=== PATIENT | female | born 1965 | race Caucasian/White ===

== ENCOUNTER 2018-10-21 10:13 | Observation (INO) | payer OTHER ==
[2018-10-21] MEDS: IPRATROPIUM-ALBUTEROL 3 ML NEB INHALATION SCH ×3 (12:57→21:05)
[2018-10-21 13:42] LABS: Basophils % (A) 1 %; Eosinophils # (A) 0.2 k/uL (0-0.7); Eosinophils % (A) 2 %; HCT 45.4 % (34.0-46.0); HGB 15.2 gm/dL (11.4-16.0); Lymphocytes # (A) 2.4 k/uL (1.0-4.8); Lymphocytes % (A) 31 %; MCH 29.5 pg (25.0-35.0); MCHC 33.5 g/dL (31.0-37.0); Mean Platelet Volume 7.2; Monocytes # (A) 0.4 k/uL (0-1.0); Monocytes % (A) 5 %; Neutrophils # (A) 4.6 k/uL (1.3-7.7); Neutrophils % (A) 59 %; Platelet Count 254 k/uL (150-450); RBC 5.16 m/uL (3.80-5.40); RDW 12.8 % (11.5-15.5); WBC 7.7 k/uL (3.8-10.6)
[2018-10-21 13:50] LABS: ALT 54 U/L (9-52); AST 31 U/L (14-36); Albumin 4.1 g/dL (3.5-5.0); Alkaline Phosphatase 83 U/L (38-126); Anion Gap 6 mmol/L; Blood Urea Nitrogen 6 mg/dL (7-17); Calcium 8.9 mg/dL (8.4-10.2); Carbon Dioxide 25 mmol/L (22-30); Chloride 107 mmol/L (98-107); Glucose 150 mg/dL (74-99); Potassium 4.4 mmol/L (3.5-5.1); Sodium 138 mmol/L (137-145); Total Bilirubin 0.8 mg/dL (0.2-1.3); Total Protein 6.8 g/dL (6.3-8.2)
[2018-10-21] MEDS: IBUPROFEN 200 MG TAB PO SCH ×2 (14:00→18:12)
--- NOTE | 2018-10-21 14:11 | XR ---
EXAMINATION TYPE: XR chest 2V DATE OF EXAM: 10/21/2018 COMPARISON: NONE HISTORY: Dyspnea and cough. TECHNIQUE: Frontal and lateral views of the chest are obtained. FINDINGS: There is no focal air space opacity, pleural effusion, or pneumothorax seen. The cardiac silhouette size is within normal limits. The osseous structures are intact. IMPRESSION: No acute cardiopulmonary process.
--- NOTE | 2018-10-21 14:13 | XR ---
EXAMINATION TYPE: XR abdomen 2V DATE OF EXAM: 10/21/2018 CLINICAL HISTORY: Vomiting. TECHNIQUE: Supine and upright views of the abdomen are obtained. COMPARISON: CT abdomen and pelvis from 2017. FINDINGS: Scattered gas is seen in non-distended stomach and small bowel loops. Gas and fecal mater ial is seen in non-distended colon. There is no visceromegaly, pneumoperitoneum, or abnormal calcif ication appreciated. The lung bases are clear and the osseous structures are intact. Left-sided pelv ic phlebolith is redemonstrated. IMPRESSION: Overall nonobstructive bowel gas pattern.
[2018-10-21] MEDS: SODIUM CHLORIDE 0.9% 1,000 ML IV SCH (14:36)
[2018-10-21] MEDS: methylPREDNISolone SOD SUCCI 125 MG/2 ML VIAL IV SCH (16:19)
[2018-10-21 17:28] LABS: Glucose,Whole Blood 197 mg/dL (75-99)
[2018-10-21] MEDS: INSULIN ASPART (NovoLOG) 100 UNIT/ML VIAL SQ SCH ×2 (18:12→21:19)
[2018-10-21 20:46] LABS: Glucose,Whole Blood 307 mg/dL (75-99)
[2018-10-21] MEDS ORDERED: NEOMYCIN-POLYMYXIN-DEXAMETH OINT 3.5 GM TUBE BOTH EYES SCH (21:00)
[2018-10-21] MEDS ORDERED: NON-FORMULARY DRUG (D-Methorphan/Pe/Acetaminophen [Vicks Dayquil Liquicaps] 1 CAP) PO SCH (21:00)
[2018-10-21] MEDS: OSELTAMIVIR 75 MG CAP PO SCH (21:18)
[2018-10-21] MEDS: guaiFENesin 600 MG TABLET.ER PO SCH (21:18)
[2018-10-21] MEDS: metFORMIN 500 MG TAB PO SCH (21:19)
[2018-10-21] MEDS: KETOTIFEN 0.025% OPHTH DROPS 5 ML BTL BOTH EYES SCH (21:19)
[2018-10-22] MEDS: methylPREDNISolone SOD SUCCI 125 MG/2 ML VIAL IV SCH ×3 (02:04→16:36)
[2018-10-22] MEDS: SODIUM CHLORIDE 0.9% 1,000 ML IV SCH (02:08)
[2018-10-22] MEDS: INSULIN ASPART (NovoLOG) 100 UNIT/ML VIAL SQ SCH ×2 (07:09→12:27)
[2018-10-22 07:13] LABS: Glucose,Whole Blood 259 mg/dL (75-99)
[2018-10-22] MEDS: IPRATROPIUM-ALBUTEROL 3 ML NEB INHALATION SCH ×3 (08:02→16:36)
[2018-10-22] MEDS: IBUPROFEN 200 MG TAB PO SCH ×2 (08:54→14:23)
[2018-10-22] MEDS ORDERED: ATORVASTATIN 10 MG TAB PO SCH (09:00)
[2018-10-22] MEDS: guaiFENesin 600 MG TABLET.ER PO SCH (09:03)
[2018-10-22] MEDS: KETOTIFEN 0.025% OPHTH DROPS 5 ML BTL BOTH EYES SCH (09:04)
[2018-10-22] MEDS: metFORMIN 500 MG TAB PO SCH (09:05)
[2018-10-22] MEDS: OSELTAMIVIR 75 MG CAP PO SCH (09:05)
--- NOTE | 2018-10-22 09:15 | HP ---
HISTORY AND PHYSICAL CHIEF COMPLAINT: A 52-year-old white female was admitted with severe dehydration, myalgias, flu-like symptoms, shortness of breath. She had positive H flu type B started on Tamiflu, IV Solu-Medrol for COPD exacerbation and prophylactic antibiotics for tracheobronchitis type symptoms. Accu-Chek protocol was given for diabetes mellitus. HOME MEDICATIONS: Home medications are: 1. Metformin 500 b.i.d. 2. Lipitor 10 mg daily. REVIEW OF SYSTEMS: Fourteen-point review of systems negative except for mentioned in HPI. PHYSICAL EXAM: Vital signs are reviewed. CARDIOVASCULAR: S1, S2. LUNGS: Show scattered wheeze x4, scattered rhonchi x4. No rales. CONSTITUTIONAL: Looks weak, fatigued, short of breath. States she cannot take it anymore. She does not want . INTEGUMENT: Dry skin, turgor poor skin. Dry mucous membranes. Poor skin turgor. OPHTHALMOLOGIC: Pupils equal, round, reactive to light. HEMATOLOGY: Negative Homans. VASCULAR: Normal dorsalis pedis, posterior tibial, radial pulses. ABDOMEN: Soft, nontender. Distended due to obesity. Increased bowel sounds. ASSESSMENT: 1. H flu type B, dehydration. 2. Chronic obstructive pulmonary disease exacerbation. 3. Acute hypoxemic respiratory failure secondary to influenza, possible pneumonia. Secondary pneumonia will have to be ruled out. IV Solu-Medrol, IV antibiotics, Tamiflu, fluid rehydration. Please see further orders. MMODL / IJN: [id number] /
[2018-10-22 12:24] LABS: Glucose,Whole Blood 237 mg/dL (75-99)
[2018-10-22 12:50] VITALS: BP 143/70; TEMP 98.2
[2018-10-22 13:50] VITALS: BMI 32.3
[2018-10-22 16:50] VITALS: PULSE 94; RESP 16
--- NOTE | 2018-10-22 16:58 | P.DS ---
Providers Date of admission: 10/21/18 11:02 Expected date of discharge: 10/22/18 Attending physician: Myron Vazquez [facility] Course: -H influenza type B, dehydration -Acute hypoxic respiratory failure secondary to influenza, possibly pneumonia -COPD, possibly acute exacerbation secondary to influenza -Ongoing nicotine dependence, smoking cessation readdressed Hospital course: This is a 52-year-old female admitted with severe dehydration, myalgias, shortness of breath, tested positive for influenza B. Maintained on gentle IV fluid hydration, IV steroids, antibiotics, Tamiflu. Significant clinical improvement. Patient is eager and requests to go home tonight versus waiting for tomorrow morning. Patient is being discharged home in a stable condition with guarded prognosis. EXAM: GENERAL: Alert and oriented 3, no acute distress. CARDIOVASCULAR: S1, S2 muffled. No murmur RESPIRATION: Breath sounds diminished in the bases. Improved mild expiratory wheezing, No rhonchi or crackles. No bronchial breathing. ABDOMEN: Soft, nontender . No guarding. no masses palpable.Bowel sounds heard. NERVOUS SYSTEM: No focal deficits. The impression and plan of care has been dictated as directed. .: I performed a history and examination of this patient, discussed the same with the dictator. I agree with the dictator's note ,documented as a scribe. Any additional findings or plans will be noted. Time taken: 35 minutes Patient Condition at Discharge: Stable Plan - Discharge Summary New Discharge Prescriptions: New Cefuroxime Axetil [Ceftin] 500 mg PO BID #10 tab predniSONE 10 mg PO DIRECTED #30 tab Pantoprazole Sodium [Protonix] 40 mg PO DAILY #15 tablet. Oseltamivir [Tamiflu] 75 mg PO Q12HR #10 cap Continue Azelastine HCl [Optivar 0.05% Ophth Soln] 1 drop BOTH EYES BID guaiFENesin [Mucinex] 600 mg PO Q12HR Ibuprofen [Motrin Ib] 200 mg PO Q8H metFORMIN HCL [Glucophage] 500 mg PO BID Atorvastatin [Lipitor] 10 mg PO DAILY Yehdnoua-Kitxkyajq-Iowqmqls [Maxitrol Ophth Oint] 1 applic BOTH EYES HS Discharge Medication List Atorvastatin [Lipitor] 10 mg PO DAILY 10/21/18 [History] Azelastine HCl [Optivar 0.05% Ophth Soln] 1 drop BOTH EYES BID 10/21/18 [History] Ibuprofen [Motrin Ib] 200 mg PO Q8H 10/21/18 [History] Xpqyuofe-Qxpweqltl-Iynaante [Maxitrol Ophth Oint] 1 applic BOTH EYES HS 10/21/18 [History] guaiFENesin [Mucinex] 600 mg PO Q12HR 10/21/18 [History] metFORMIN HCL [Glucophage] 500 mg PO BID 10/21/18 [History] Cefuroxime Axetil [Ceftin] 500 mg PO BID #10 tab 10/22/18 [Rx] Oseltamivir [Tamiflu] 75 mg PO Q12HR #10 cap 10/22/18 [Rx] Pantoprazole Sodium [Protonix] 40 mg PO DAILY #15 tablet. 10/22/18 [Rx] predniSONE 10 mg PO DIRECTED #30 tab 10/22/18 [Rx] Follow up Appointment(s)/Referral(s): Myron Vazquez MD [Primary Care Provider] - 3 Days Ambulatory/Diagnostic Orders: Complete Blood Count w/diff [LAB.AMB] Time Frame: 3 Days, Location: None Selected Activity/Diet/Wound Care/Special Instructions: Accu-Cheks before meals and at bedtime, maintain log, take to follow-up visit with PCP for further recommendations. HGBA1C ordered with results to be faxed to PCPs office.
[2018-10-23 00:27] LABS: Hemoglobin A1C 8.3 % (4.0-6.0)
== END 2018-10-22 17:15 | disposition home or self-care (01) ==
LOC: 6PED 11:02
PROVIDERS: ADMIT Family Medicine; ATTEND Family Medicine
DX: J09.X2 Influenza due to identified novel influenza A virus with other respiratory manifestations (principal); E86.0 Dehydration; J96.01 Acute respiratory failure with hypoxia; F17.200 Nicotine dependence, unspecified, uncomplicated; Z71.6 Tobacco abuse counseling; J44.1 Chronic obstructive pulmonary disease with (acute) exacerbation; Z79.899 Other long term (current) drug therapy
CPT/HCPCS: 96361 ×2; 96365; 96366; 96375; 96376; 94640 ×4; 93005; 85379; 83880; 80053; 83605; 85025; 87502; 83036; 71046; 74019; G0378 ×2; G0379; J2930 ×2; J0696 ×2

== ENCOUNTER → 2019-03-25 | Outpatient (CLI) | payer OTHER ==
[2019-03-25 11:19] LABS: African American GFR (CKD) 115.5 (60.0-200.0); Anion Gap 7.3 mmol/L (4.00-12.00); Carbon Dioxide 28.7 mmol/L (21.6-31.8); LDL Cholesterol,Calculated 90.6 mg/dL (0.0-131.0); Potassium 4.4 mmol/L (3.5-5.5); VLDL Calculation 29.4 mg/dL (5.00-40.00)
[2019-03-25 16:27] LABS: Hemoglobin A1C 9.7 % (4.0-6.0)
== END | disposition home or self-care (01) ==
LOC: LABWHC1 06:59
PROVIDERS: ATTEND Family Medicine
DX: Z00.00 Encounter for general adult medical examination without abnormal findings (principal); Z79.899 Other long term (current) drug therapy
CPT/HCPCS: 36415; 80051; 80061; 82533; 82565; 83036; 84443; 84520

== ENCOUNTER 2019-09-05 14:36 | Inpatient (IN) | payer OTHER ==
[2019-09-05] MEDS: SODIUM CHLORIDE 0.9% 1,000 ML IV SCH (16:33)
[2019-09-05] MEDS: methylPREDNISolone SOD SUCCI 125 MG/2 ML VIAL IV SCH (16:34)
[2019-09-05 16:38] LABS: Glucose,Whole Blood 182 mg/dL (75-99)
[2019-09-05] MEDS ORDERED: guaiFENesin 600 MG TABLET.ER PO PRN (16:58)
[2019-09-05] MEDS ORDERED: KETOTIFEN 0.025% OPHTH DROPS 5 ML BTL BOTH EYES PRN (16:58)
[2019-09-05] MEDS ORDERED: NEOMYCIN-POLYMYXIN-DEXAMETH OINT 3.5 GM TUBE BOTH EYES PRN (16:58)
[2019-09-05] MEDS: INSULIN ASPART (NovoLOG) 100 UNIT/ML VIAL SQ SCH ×2 (17:55→22:01)
[2019-09-05 18:38] LABS: Basophils % (A) 1 %; Eosinophils % (A) 1 %; HCT 45.4 % (34.0-46.0); Lymphocytes # (A) 1.2 k/uL (1.0-4.8); Lymphocytes % (A) 28 %; MCH 28.9 pg (25.0-35.0); MCV 87.5 fL (80.0-100.0); Mean Platelet Volume 8.6; Monocytes # (A) 0.2 k/uL (0-1.0); Monocytes % (A) 5 %; Neutrophils # (A) 2.8 k/uL (1.3-7.7); Neutrophils % (A) 64 %; Platelet Count 188 k/uL (150-450); RBC 5.19 m/uL (3.80-5.40); RDW 12.3 % (11.5-15.5); WBC 4.4 k/uL (3.8-10.6)
[2019-09-05 18:51] LABS: ALT 45 U/L (4-34); AST 31 U/L (14-36); African American GFR (CKD) >90 (>60 ml/min/1.73 sqM); Albumin 3.6 g/dL (3.5-5.0); Alkaline Phosphatase 76 U/L (38-126); Anion Gap 6 mmol/L; Blood Urea Nitrogen 12 mg/dL (7-17); Calcium 8.4 mg/dL (8.4-10.2); Carbon Dioxide 29 mmol/L (22-30); Chloride 98 mmol/L (98-107); Glucose 209 mg/dL (74-99); Non-African American GFR(CKD) >90 (>60 ml/min/1.73 sqM); Sodium 133 mmol/L (137-145); Total Bilirubin 0.8 mg/dL (0.2-1.3); Total Protein 6.2 g/dL (6.3-8.2)
--- NOTE | 2019-09-05 20:06 | XR ---
EXAMINATION TYPE: XR chest 2V DATE OF EXAM: 09/05/2019 COMPARISON: 10/21/2018 HISTORY: Cough. Chest pain. TECHNIQUE: FINDINGS: Heart and mediastinum are normal. Lungs are clear. Diaphragm is normal. Bony thorax is inta ct. Pulmonary vascularity is normal. IMPRESSION: No active cardiopulmonary disease. Normal heart. No change.
[2019-09-05 20:19] LABS: Glucose,Whole Blood 350 mg/dL (75-99)
[2019-09-06] MEDS: SODIUM CHLORIDE 0.9% 1,000 ML IV SCH ×4 (00:21→23:07)
[2019-09-06] MEDS: methylPREDNISolone SOD SUCCI 125 MG/2 ML VIAL IV SCH ×4 (00:41→23:05)
[2019-09-06 01:20] LABS: Hemoglobin A1C 9.3 % (4.0-6.0)
[2019-09-06 01:57] LABS: Appearance,Urine Turbid (Clear); Bacteria,Urine Many /hpf; Bilirubin,Urine Negative (Negative); Blood,Urine Negative (Negative); Color,Urine Light Orange; Glucose,Urine (UA) 4+ (Negative); Ketones,Urine Trace (Negative); Leukocyte Esterase,Urine Moderate (Negative); Mucus,Urine Many /hpf; Nitrite,Urine Negative (Negative); PH, Urine 5.5 (5.0-8.0); Protein,Urine Trace (Negative); RBC,Urine 2 /hpf (0-5); Specific Gravity,Urine 1.027 (1.001-1.035); WBC,Urine 12 /hpf (0-5)
[2019-09-06 06:42] LABS: Glucose,Whole Blood 292 mg/dL (75-99)
[2019-09-06 07:09] LABS: Basophils % (A) 0 %; Eosinophils % (A) 0 %; HCT 44.2 % (34.0-46.0); HGB 14.5 gm/dL (11.4-16.0); Lymphocytes # (A) 1.1 k/uL (1.0-4.8); Lymphocytes % (A) 35 %; MCH 29.2 pg (25.0-35.0); MCHC 32.9 g/dL (31.0-37.0); MCV 88.6 fL (80.0-100.0); Mean Platelet Volume 7.6; Monocytes # (A) 0.1 k/uL (0-1.0); Monocytes % (A) 4 %; Neutrophils # (A) 1.7 k/uL (1.3-7.7); Neutrophils % (A) 56 %; Platelet Count 195 k/uL (150-450); RBC 4.98 m/uL (3.80-5.40); RDW 12.3 % (11.5-15.5)
[2019-09-06 07:31] LABS: ALT 41 U/L (4-34); AST 30 U/L (14-36); African American GFR (CKD) >90 (>60 ml/min/1.73 sqM); Albumin 3.4 g/dL (3.5-5.0); Alkaline Phosphatase 70 U/L (38-126); Anion Gap 9 mmol/L; Blood Urea Nitrogen 11 mg/dL (7-17); Calcium 8.3 mg/dL (8.4-10.2); Carbon Dioxide 25 mmol/L (22-30); Chloride 103 mmol/L (98-107); Glucose 304 mg/dL (74-99); Non-African American GFR(CKD) >90 (>60 ml/min/1.73 sqM); Potassium 4.2 mmol/L (3.5-5.1); Sodium 137 mmol/L (137-145); Total Bilirubin 0.6 mg/dL (0.2-1.3); Total Protein 6.1 g/dL (6.3-8.2)
[2019-09-06 07:58] VITALS: RESP 18
[2019-09-06] MEDS: INSULIN ASPART (NovoLOG) 100 UNIT/ML VIAL SQ SCH ×4 (08:14→20:38)
[2019-09-06] MEDS: LORATADINE 10 MG TAB PO SCH (08:59)
[2019-09-06] MEDS: ATORVASTATIN 10 MG TAB PO SCH (08:59)
[2019-09-06 11:35] VITALS: BMI 33.7
[2019-09-06 11:36] LABS: Glucose,Whole Blood 277 mg/dL (75-99)
--- NOTE | 2019-09-06 14:39 | HP ---
HISTORY AND PHYSICAL A 53-year-old, white female admitted with COPD, asthma exacerbation, tracheobronchitis, saturating in the high 80s on room air. She is currently saturating 90% to 91% on room air. She remains on Solu-Medrol as well as Rocephin as well as her Lipitor and nebulizer treatments with DuoNeb. Her respiratory status is not much better than when she was admitted but she says she does not feel like she is going to like she did yesterday. As mentioned, she is saturating 90% to 91% on room air. Home medications have been restarted. SOCIAL HISTORY: She lives with her . She does smoke over a pack a day. No alcohol. REVIEW OF SYSTEMS: Positive for having the flu a month ago and been sick ever since with increased respiratory distress in the past week coming back from [place]. PHYSICAL EXAMINATION: LUNGS: Scattered rhonchi and wheeze x4. Decreased breath sounds x4. ENDOCRINE: BMI is over 40. PSYCHIATRIC: She appears anxious and nervous because of her breathing. CARDIOVASCULAR: S1, S2. HEMATOLOGIC: 2+ to 3+ pedal edema. VASCULAR: Normal dorsal pedis, posterior tibial and radial pulses. Pupils equal, round, and reactive to light and accommodation. ASSESSMENT: 1. Chronic obstructive pulmonary disease. 2. Asthma exacerbation. 3. Tracheobronchitis. Remains on IV steroids, IV antibiotics, updraft treatments with DuoNeb. Continue with current treatment. She feels better than yesterday. We will add a nebulizer with DuoNeb. Possible discharge home tomorrow as her breathing is about 30% to 50% better even though she is saturating 90% to 91% on room air. MMODL / IJN: [id number] /
[2019-09-06] MEDS: IPRATROPIUM-ALBUTEROL 3 ML NEB INHALATION SCH ×2 (16:36→21:29)
[2019-09-06 16:38] LABS: Glucose,Whole Blood 302 mg/dL (75-99)
[2019-09-06] MEDS ORDERED: RX INFO: IV CONTRAST WAS GIVEN 1 EACH MISC MISCELLANE PRN (17:08)
--- NOTE | 2019-09-06 20:05 | CT ---
EXAMINATION TYPE: CT chest w con DATE OF EXAM: 09/06/2019 COMPARISON: None HISTORY: Hypoxia CT DLP: 604.4 mGycm Automated exposure control for dose reduction was used. CONTRAST: Performed with IV Contrast, patient injected with 100 mL of Isovue 300. There are small patchy areas of subpleural interstitial and alveolar pulmonary infiltrates bilaterall y. There is no discrete pulmonary mass. Heart size is normal. There is no pericardial effusion. There is some fatty infiltration of the liver. There is no pleural effusion. There are no hilar masses. Mediastinum appears normal. Thoracic aorta is intact. There is no aneurysm or dissection. Bony thorax is intact. IMPRESSION: There is bilateral peripheral small pulmonary interstitial and alveolar infiltrates more likely relat ed to inflammatory disease. No suspicious pulmonary mass. Mild subsegmental atelectasis at the lung b ases. Fatty liver.
[2019-09-06 20:09] LABS: Glucose,Whole Blood 307 mg/dL (75-99)
[2019-09-07 06:12] LABS: Glucose,Whole Blood 287 mg/dL (75-99)
[2019-09-07] MEDS: INSULIN ASPART (NovoLOG) 100 UNIT/ML VIAL SQ SCH ×2 (08:09→11:50)
[2019-09-07] MEDS: ATORVASTATIN 10 MG TAB PO SCH (08:10)
[2019-09-07] MEDS: methylPREDNISolone SOD SUCCI 125 MG/2 ML VIAL IV SCH (08:10)
[2019-09-07] MEDS: LORATADINE 10 MG TAB PO SCH (08:10)
[2019-09-07] MEDS: IPRATROPIUM-ALBUTEROL 3 ML NEB INHALATION SCH ×2 (09:15→13:21)
[2019-09-07 11:46] LABS: Glucose,Whole Blood 333 mg/dL (75-99)
[2019-09-07 13:22] VITALS: BP 135/81; TEMP 98.1
[2019-09-07 13:36] VITALS: PULSE 84
--- NOTE | 2019-09-07 14:33 | P.DS ---
Providers Date of admission: 09/07/19 13:13 Expected date of discharge: 09/07/19 Attending physician: Myron Vazquez [facility] Course: Final Diagnoses: Bilateral pneumonia as suggested per CT, with tracheobronchitis Acute asthma exacerbation COPD exacerbation, acute Hospital course: Maintained on IV antibiotics, IV steroids, nebulized bronchodilators. Significant clinical improvement. Patient eager for discharge.Patient is being discharged home in stable condition with guarded prognosis. Patient instructed to follow with Dr. Myron Vazquez on 09/09/2019. EXAM: GENERAL: Alert and oriented 3, no acute distress CARDIOVASCULAR: S1, S2 regular.. No murmur RESPIRATION: Breath sounds diminished in the bases. Occasional scattered rhonchi, no expiratory wheezing. ABDOMEN: Soft, nontender . No guarding. no masses palpable.Bowel sounds heard. NERVOUS SYSTEM: No focal deficits. The impression and plan of care has been dictated as directed. : I performed a history and examination of this patient, discussed the same with the dictator. I agree with the dictator's note ,documented as a scribe. Any additional findings or plans will be noted. Patient Condition at Discharge: Stable Plan - Discharge Summary Discharge Rx Participant: Yes New Discharge Prescriptions: New Cefuroxime Axetil [Ceftin] 500 mg PO BID 7 Days #14 tab methylPREDNISolone [Medrol Dose Pack] 4 mg PO DIRECTED #1 pack Famotidine [Pepcid] 20 mg PO BID #1 tablet Albuterol Inhaler [Ventolin Hfa Inhaler] 2 puff INHALATION QID #1 inhaler Continue guaiFENesin [Mucinex] 600 mg PO Q12HR PRN PRN Reason: Congestion Atorvastatin [Lipitor] 10 mg PO DAILY Pnpfpktl-Qnuxigjno-Svqlgdfi [Maxitrol Ophth Oint] 1 applic BOTH EYES BID PRN PRN Reason: Allergy Symptoms metFORMIN HCL [Glucophage] 1,000 mg PO DAILY Loratadine [Claritin] 10 mg PO DAILY Olopatadine HCl [Pataday] 1 drop BOTH EYES BID PRN PRN Reason: Allergy Symptoms Discontinued Ibuprofen [Motrin Ib] 400 mg PO Q6H PRN PRN Reason: Fever And/ Or Pain Discharge Medication List Atorvastatin [Lipitor] 10 mg PO DAILY 10/21/18 [History] Nclmbmcq-Wobugflyn-Pwetbuvn [Maxitrol Ophth Oint] 1 applic BOTH EYES BID PRN 10/21/18 [History] guaiFENesin [Mucinex] 600 mg PO Q12HR PRN 10/21/18 [History] Loratadine [Claritin] 10 mg PO DAILY 09/05/19 [History] Olopatadine HCl [Pataday] 1 drop BOTH EYES BID PRN 09/05/19 [History] metFORMIN HCL [Glucophage] 1,000 mg PO DAILY 09/05/19 [History] Albuterol Inhaler [Ventolin Hfa Inhaler] 2 puff INHALATION QID #1 inhaler 09/07/19 [Rx] Cefuroxime Axetil [Ceftin] 500 mg PO BID 7 Days #14 tab 09/07/19 [Rx] Famotidine [Pepcid] 20 mg PO BID #1 tablet 09/07/19 [Rx] methylPREDNISolone [Medrol Dose Pack] 4 mg PO DIRECTED #1 pack 09/07/19 [Rx] Follow up Appointment(s)/Referral(s): Myron Vazquez MD [Primary Care Provider] - 09/09/19 Ambulatory/Diagnostic Orders: Complete Blood Count w/diff [LAB.AMB] Time Frame: 3 Days, Location: None Selected Patient Instructions/Handouts: Dehydration (GEN)
== END 2019-09-07 15:43 | disposition home or self-care (01) | DRG 190 ==
LOC: 1SOBS 15:13 → OBSVTOIN 09-07 13:13
PROVIDERS: ADMIT Family Medicine; ATTEND Family Medicine
DX: J44.1 Chronic obstructive pulmonary disease with (acute) exacerbation (principal); J18.9 Pneumonia, unspecified organism; J45.901 Unspecified asthma with (acute) exacerbation; J44.0 Chronic obstructive pulmonary disease with (acute) lower respiratory infection; F17.210 Nicotine dependence, cigarettes, uncomplicated
CPT/HCPCS: 71046; 71260; 80053; 81001; 83036; 83605; 85025; 85379; 87040; 87077; 87086; 87186; 87502; 94640

== ENCOUNTER 2019-09-09 09:35 | Inpatient (IN) | payer OTHER ==
[2019-09-09] MEDS ORDERED: guaiFENesin 600 MG TABLET.ER PO PRN (11:01)
[2019-09-09] MEDS ORDERED: KETOTIFEN 0.025% OPHTH DROPS 5 ML BTL BOTH EYES PRN (11:01)
[2019-09-09] MEDS ORDERED: NEOMYCIN-POLYMYXIN-DEXAMETH OINT 3.5 GM TUBE BOTH EYES PRN (11:01)
[2019-09-09] MEDS ORDERED: IPRATROPIUM-ALBUTEROL 3 ML NEB INHALATION PRN (11:05)
[2019-09-09] MEDS ORDERED: PANTOPRAZOLE 40 MG/10 ML VIAL IVP SCH (11:15)
[2019-09-09 11:31] LABS: Basophils % (A) 0 %; Eosinophils # (A) 0.1 k/uL (0-0.7); Eosinophils % (A) 1 %; HGB 14.2 gm/dL (11.4-16.0); Lymphocytes # (A) 2.6 k/uL (1.0-4.8); Lymphocytes % (A) 29 %; MCH 29.1 pg (25.0-35.0); MCHC 33.1 g/dL (31.0-37.0); MCV 87.8 fL (80.0-100.0); Mean Platelet Volume 8.3; Monocytes # (A) 0.6 k/uL (0-1.0); Monocytes % (A) 6 %; Neutrophils # (A) 5.4 k/uL (1.3-7.7); Neutrophils % (A) 62 %; Platelet Count 283 k/uL (150-450); RBC 4.89 m/uL (3.80-5.40); RDW 12.3 % (11.5-15.5); WBC 8.8 k/uL (3.8-10.6)
[2019-09-09] MEDS: IPRATROPIUM-ALBUTEROL 3 ML NEB INHALATION SCH ×3 (12:10→19:03)
[2019-09-09 12:13] LABS: Glucose,Whole Blood 183 mg/dL (75-99)
[2019-09-09 12:30] LABS: ALT 111 U/L (4-34); AST 50 U/L (14-36); African American GFR (CKD) >90 (>60 ml/min/1.73 sqM); Albumin 3.6 g/dL (3.5-5.0); Alkaline Phosphatase 75 U/L (38-126); Anion Gap 8 mmol/L; Blood Urea Nitrogen 12 mg/dL (7-17); Calcium 8.7 mg/dL (8.4-10.2); Carbon Dioxide 28 mmol/L (22-30); Chloride 99 mmol/L (98-107); Glucose 190 mg/dL (74-99); Magnesium 1.8 mg/dL (1.6-2.3); Non-African American GFR(CKD) >90 (>60 ml/min/1.73 sqM); Potassium 4.3 mmol/L (3.5-5.1); Sodium 135 mmol/L (137-145); Total Bilirubin 0.5 mg/dL (0.2-1.3); Total Protein 6.2 g/dL (6.3-8.2)
[2019-09-09] MEDS: metFORMIN 500 MG TAB PO SCH (12:40)
[2019-09-09] MEDS: NICOTINE 14MG/24HR PATCH TRANSDERM SCH (12:40)
[2019-09-09] MEDS: LORATADINE 10 MG TAB PO SCH (12:40)
[2019-09-09] MEDS: LEVOFLOXACIN 500MG-D5W PMX 500 MG in DEXTROSE/WATER 1 100ML.BAG IVPB SCH (12:45)
[2019-09-09] MEDS: INSULIN ASPART (NovoLOG) 100 UNIT/ML VIAL SQ SCH ×3 (12:45→21:53)
[2019-09-09] MEDS: methylPREDNISolone SOD SUCCI 125 MG/2 ML VIAL IV SCH ×3 (12:45→23:39)
[2019-09-09] MEDS: SODIUM CHLORIDE 0.9% 1,000 ML IV SCH (16:44)
[2019-09-09 17:09] LABS: Glucose,Whole Blood 299 mg/dL (75-99)
[2019-09-09] MEDS ORDERED: INSULIN ASPART (NovoLOG) 100 UNIT/ML VIAL SQ ONE (17:54)
[2019-09-09 21:20] LABS: Glucose,Whole Blood 328 mg/dL (75-99)
[2019-09-10] MEDS: methylPREDNISolone SOD SUCCI 125 MG/2 ML VIAL IV SCH ×4 (05:35→23:26)
[2019-09-10] MEDS: SODIUM CHLORIDE 0.9% 1,000 ML IV SCH ×2 (05:35→20:17)
[2019-09-10 07:12] LABS: Glucose,Whole Blood 280 mg/dL (75-99)
[2019-09-10] MEDS: ATORVASTATIN 10 MG TAB PO SCH (07:26)
[2019-09-10] MEDS: metFORMIN 500 MG TAB PO SCH (07:26)
[2019-09-10] MEDS: INSULIN ASPART (NovoLOG) 100 UNIT/ML VIAL SQ SCH ×4 (07:26→21:14)
[2019-09-10] MEDS: NICOTINE 14MG/24HR PATCH TRANSDERM SCH (07:26)
[2019-09-10] MEDS: PANTOPRAZOLE 40 MG TABLET PO SCH (07:26)
[2019-09-10] MEDS: LORATADINE 10 MG TAB PO SCH (07:26)
[2019-09-10 08:14] LABS: Basophils % (A) 0 %; Eosinophils # (A) 0.1 k/uL (0-0.7); Eosinophils % (A) 0 %; HCT 43.1 % (34.0-46.0); HGB 14.6 gm/dL (11.4-16.0); Lymphocytes # (A) 2.2 k/uL (1.0-4.8); Lymphocytes % (A) 18 %; MCH 29.4 pg (25.0-35.0); MCHC 33.8 g/dL (31.0-37.0); MCV 86.9 fL (80.0-100.0); Mean Platelet Volume 8.2; Monocytes # (A) 0.4 k/uL (0-1.0); Monocytes % (A) 3 %; Neutrophils # (A) 9.5 k/uL (1.3-7.7); Neutrophils % (A) 77 %; Platelet Count 308 k/uL (150-450); RBC 4.96 m/uL (3.80-5.40); RDW 12.2 % (11.5-15.5); WBC 12.3 k/uL (3.8-10.6)
[2019-09-10 08:21] LABS: African American GFR (CKD) >90 (>60 ml/min/1.73 sqM); Anion Gap 8 mmol/L; Blood Urea Nitrogen 12 mg/dL (7-17); Calcium 9.3 mg/dL (8.4-10.2); Carbon Dioxide 27 mmol/L (22-30); Chloride 98 mmol/L (98-107); Glucose 282 mg/dL (74-99); Non-African American GFR(CKD) >90 (>60 ml/min/1.73 sqM); Potassium 4.6 mmol/L (3.5-5.1); Sodium 133 mmol/L (137-145)
[2019-09-10] MEDS: IPRATROPIUM-ALBUTEROL 3 ML NEB INHALATION SCH ×4 (09:23→20:08)
[2019-09-10 10:19] VITALS: BMI 34.4
[2019-09-10] MEDS: LEVOFLOXACIN 500MG-D5W PMX 500 MG in DEXTROSE/WATER 1 100ML.BAG IVPB SCH (10:48)
[2019-09-10 11:34] LABS: Glucose,Whole Blood 319 mg/dL (75-99)
[2019-09-10 16:29] LABS: Glucose,Whole Blood 328 mg/dL (75-99)
--- NOTE | 2019-09-10 17:39 | XR ---
EXAMINATION TYPE: XR chest 2V DATE OF EXAM: 09/10/2019 COMPARISON: September 05, 2019 HISTORY: Cough TECHNIQUE: 2 views FINDINGS: Heart is normal. Lungs are clear of infiltrate. There is no heart failure. There are no hil ar masses. IMPRESSION: No active cardiopulmonary disease. Normal heart. No change.
[2019-09-10 21:07] LABS: Glucose,Whole Blood 299 mg/dL (75-99)
--- NOTE | 2019-09-10 21:09 | HP ---
HISTORY AND PHYSICAL This is a 53-year-old white female who is admitted with bilateral pneumonia, COPD exacerbation, tracheobronchitis, and dehydration with some atypical chest pain with severe heartburn and pain in her chest. She was admitted to the floor, started on IV Solu-Medrol and IV antibiotics, updraft treatments. Her white count was high at 12.3. Her sugars in the mid 200s. She is being rehydrated and given IV steroids overnight. Breathing is greatly improved. Possible discharge home tomorrow. She remains on IV steroids, updraft treatments at this time, and Levaquin IV. REVIEW OF SYSTEMS: Fourteen-point review of systems negative except for mentioned in HPI. MEDS: I have her on Levaquin IV, DuoNeb updraft q.i.d., Mucinex, Lipitor, Protonix, metformin. PHYSICAL EXAMINATION: Temperature is 98. Blood pressure 161/86. O2 93% on room air, respiratory 18-25, pulse is 85-90. CARDIOVASCULAR: S1, S2. Lungs are decreased breath sounds x4, rhonchi x4. Psych poor mood and affect. NEUROLOGIC: Cranial nerves are intact. Lungs show scattered rhonchi and wheeze. Cardiovascular S1, S2. Abdomen is soft, nontender. Hematology negative Homans. Vascular: Normal dorsalis pedis, posterior tibial, radial pulse. ASSESSMENT: 1. Acute chronic obstructive pulmonary disease exacerbation. 2. Tracheobronchitis. 3. Acute hypoxemic respiratory distress. Continue with IV steroids, IV antibiotics, updraft treatments. Please see further orders. MMODL / IJN: [id number] /
[2019-09-11 05:33] VITALS: BP 158/94; RESP 16; TEMP 97.4
[2019-09-11] MEDS: methylPREDNISolone SOD SUCCI 125 MG/2 ML VIAL IV SCH ×2 (05:35→11:12)
[2019-09-11 07:04] LABS: Glucose,Whole Blood 314 mg/dL (75-99)
[2019-09-11] MEDS: metFORMIN 500 MG TAB PO SCH (07:11)
[2019-09-11] MEDS: PANTOPRAZOLE 40 MG TABLET PO SCH (07:11)
[2019-09-11] MEDS: IPRATROPIUM-ALBUTEROL 3 ML NEB INHALATION SCH ×2 (07:11→10:56)
[2019-09-11] MEDS: SODIUM CHLORIDE 0.9% 1,000 ML IV SCH (07:11)
[2019-09-11] MEDS: ATORVASTATIN 10 MG TAB PO SCH (07:11)
[2019-09-11] MEDS: LORATADINE 10 MG TAB PO SCH (07:11)
[2019-09-11] MEDS: NICOTINE 14MG/24HR PATCH TRANSDERM SCH (07:12)
[2019-09-11] MEDS: INSULIN ASPART (NovoLOG) 100 UNIT/ML VIAL SQ SCH ×2 (07:12→11:51)
[2019-09-11 10:59] VITALS: PULSE 74
[2019-09-11] MEDS: LEVOFLOXACIN 500MG-D5W PMX 500 MG in DEXTROSE/WATER 1 100ML.BAG IVPB SCH (11:08)
[2019-09-11 11:22] LABS: Glucose,Whole Blood 276 mg/dL (75-99)
== END 2019-09-11 12:37 | disposition home or self-care (01) | DRG 192 ==
LOC: 6NMEDSUR 10:04 → OBSVTOIN 09-11 08:09
PROVIDERS: ADMIT Family Medicine; ATTEND Family Medicine
DX: J44.1 Chronic obstructive pulmonary disease with (acute) exacerbation (principal); J44.0 Chronic obstructive pulmonary disease with (acute) lower respiratory infection; E86.0 Dehydration; R06.03 Acute respiratory distress; R09.02 Hypoxemia; R12 Heartburn
CPT/HCPCS: 71046; 80048; 80053; 83735; 84484; 85025; 85379; 93005; 94640

== ENCOUNTER → 2020-04-26 | Outpatient (CLI) | payer OTHER ==
--- NOTE | 2020-04-30 14:04 | MM ---
Reason for exam: screening (asymptomatic). Last mammogram was performed 4 years and 8 months ago. History: Patient is postmenopausal. Physical Findings: A clinical breast exam by your physician is recommended on an annual basis and results should be correlated with mammographic findings. MG Screening Mammo w CAD Bilateral CC and MLO view(s) were taken. Prior study comparison: August 14, 2015, bilateral MG screening mammo w CAD. There are scattered fibroglandular densities. No significant changes when compared with prior studies. ASSESSMENT: Benign, BI-RAD 2 RECOMMENDATION: Routine screening mammogram of both breasts in 1 year.
== END | disposition home or self-care (01) ==
LOC: RADMAMWWP 07:32
PROVIDERS: ATTEND Family Medicine
DX: Z12.31 Encounter for screening mammogram for malignant neoplasm of breast (principal)
CPT/HCPCS: 77067

== ENCOUNTER → 2022-05-14 | Outpatient (CLI) | payer OTHER ==
--- NOTE | 2022-05-14 08:59 | CTL ---
EXAMINATION TYPE: CT Low Dose Lung DATE OF EXAM ORDERED: 05/14/2022 HISTORY: . Lung cancer screening CT DLP: 91.[address] CTDI: 2.4 mGy Automated exposure control for dose reduction was used. SCREENING VISIT: COMPARISON: 09/06/2019 TECHNIQUE: Low dose computed tomography scan was performed through the chest at 1 mm thick sections a nd reconstructed images in multiple planes at 1 mm and [address] DIAGNOSTIC QUALITY: Satisfactory FINDINGS: There are subsegmental areas of consolidation involving the anterior segment of the left upper lobe. Mild central and basilar bronchiectasis seen. No focal pneumonia, pleural effusion or pneumothorax no pleural or parenchymal calcifications. Pulmonary nodules there is a 2 mm pulmonary nodule subpleural location axial image 55 series 4. Has a benign appearance. Atherosclerotic change of the aorta which is of normal caliber. Heart size normal. No significant cor onary artery calcifications. By noncontrast technique no definite sizable pathologic adenopathy. Hypertrophic and degenerative change of the spine. Structures of the upper abdomen demonstrate mild t hickening of the left adrenal gland which is nonspecific. IMPRESSION: 1. Correlate for mild COPD. 2. 2 mm subpleural right apical lung nodule has a benign appearance. 3. Mild central and basilar bronchiectasis. CT LUNG RAD AND CT CHEST RECOMMENDATION: Lung-Rad 2 Benign Appearance or Behavior: Continue annual sc reening with LDCT in 12 months. S Modifier (other clinically significant findings): S
== END | disposition home or self-care (01) ==
LOC: RADCTMAIN 07:43
PROVIDERS: ATTEND Family Medicine
DX: Z12.2 Encounter for screening for malignant neoplasm of respiratory organs (principal); J44.9 Chronic obstructive pulmonary disease, unspecified; R91.1 Solitary pulmonary nodule; Z87.891 Personal history of nicotine dependence
CPT/HCPCS: 71271

== ENCOUNTER 2022-05-18 16:51 | Emergency (ER) | payer OTHER ==
[2022-05-18 17:05] VITALS: BP 158/93; PULSE 104; RESP 18; TEMP 97.7
[2022-05-18] MEDS ORDERED: LIDOCAINE 1% INJ 10MG/ML (30 ML VIAL-PF) SQ ONE (17:17)
[2022-05-18] MEDS ORDERED: DIPH,PERTUS(ACELL)TETVAC-LF 0.5 ML VIAL IM ONE (17:17)
--- NOTE | 2022-05-18 17:17 | ED ---
Wound/Laceration HPI - General Chief Complaint: Wound/Laceration Stated Complaint: Possible stitches,Finger injury Time Seen by Provider: 05/18/22 17:10 Source: patient, RN notes reviewed Mode of arrival: ambulatory Limitations: no limitations - History of Present Illness Initial Comments: Patient is a 56-year-old female presenting to the emergency room after accidentally cutting her right index finger with a razor blade earlier today. She reports that the wound bled significantly and dressing was applied. She denies any range of motion impairment or any concerns for injury to the bone or debris in the wound. She is unsure of when her last tetanus vaccination was. She has a past medical history significant for asthma, COPD, diabetes, GERD, and Murphy's palsy. - Related Data Home Medications Medication Instructions Recorded Confirmed Atorvastatin [Lipitor] 10 mg PO DAILY 10/21/18 09/09/19 Cizfzebp-Vgohullkt-Ebtwqovr 1 applic BOTH EYES BID PRN 10/21/18 09/09/19 [Maxitrol Ophth Oint] guaiFENesin [Mucinex] 600 mg PO Q12HR PRN 10/21/18 09/09/19 Loratadine [Claritin] 10 mg PO DAILY 09/05/19 09/09/19 Olopatadine HCl [Pataday] 1 drop BOTH EYES BID PRN 09/05/19 09/09/19 metFORMIN HCL [Glucophage] 1,000 mg PO DAILY 09/05/19 09/09/19 methylPREDNISolone [Medrol Dose See Taper PO DIRECTED 09/09/19 09/09/19 Pack] Previous Rx's Medication Instructions Recorded cefUROXime axetiL [Ceftin] 500 mg PO BID 7 Days #14 tab 09/07/19 Allergies Allergy/AdvReac Type Severity Reaction Status Date / Time erythromycin base Allergy Rash/Hives Verified 05/18/22 17:05 [From E-Mycin] Review of Systems ROS Statement: Those systems with pertinent positive or pertinent negative responses have been documented in the HPI. ROS Other: All systems not noted in ROS Statement are negative. Past Medical History Past Medical History: Asthma, COPD, Diabetes Mellitus, GERD/Reflux Additional Past Medical History / Comment(s): Pt recently admitted to [facility] on 09/07/19 with bilateral pneumonia/tracheobronchitis, acute astma exacerbation/exacerbation COPD. Other hx: NIDDM type II, past PVCs, murphy's palsey x2, bronchitis, pt unaware of asthma/COPD-documented in past medical record, renal cyst/adrenal gland nodule, UTIs, polynephritis, plugged tear duct/allergies that affect eyes. History of Any Multi-Drug Resistant Organisms: None Reported Additional Past Surgical History / Comment(s): D & C, R calf benign lesion removed. Past Anesthesia/Blood Transfusion Reactions: Motion Sickness, Postoperative Nausea & Vomiting (PONV) Past Psychological History: No Psychological Hx Reported Smoking Status: Current every day smoker Past Alcohol Use History: Rare Past Drug Use History: None Reported - Past Family History Mother Family Medical History: COPD Father Family Medical History: Congestive Heart Failure (CHF), COPD, CVA/TIA Additional Family Medical History / Comment(s): Father had a TIA. General Exam General appearance: alert, in no apparent distress Head exam: Present: atraumatic, normocephalic, normal inspection Eye exam: Present: normal appearance, PERRL, EOMI. Absent: scleral icterus, conjunctival injection, periorbital swelling ENT exam: Present: normal exam, mucous membranes moist Neck exam: Present: normal inspection, full ROM Respiratory exam: Absent: respiratory distress, accessory muscle use Cardiovascular Exam: Present: regular rate GI/Abdominal exam: Absent: distended Right Hand Wrist exam: Present: full ROM, tenderness, laceration (Palmar aspect distal portion of right index finger slightly greater than 2 cm.). Absent: swelling, deformity, crepitus, dislocation, amputation, nail avulsion Vascular: Absent: vascular compromise Back exam: Present: normal inspection Neurological exam: Present: alert, oriented X3, CN II-XII intact Psychiatric exam: Present: normal affect, normal mood Skin exam: Present: other (Laceration as above) Course Vital Signs 05/18/22 17:03 Temperature 97.7 F Pulse Rate 104 H Respiratory 18 Rate Blood Pressure 158/93 O2 Sat by Pulse 99 Oximetry Procedures - Laceration Laceration #1 Consent Obtained: verbal consent Indication: laceration Site: hand (Palmar aspect right index finger distal portion) Size (cm): 2 Description: linear Depth: simple, single layer Anesthesia Technique: local infiltration Pre-repair: wound explored, irrigated extensively Size of Sutures: 4-0 Number of Sutures: 5 Patient Tolerated Procedure: well, no complications Medical Decision Making - Medical Decision Making 56-year-old female presenting to the emergency room of laceration to right distal index finger without concern for foreign body or bone involvement. No range of motion impairment. No indication for diagnostic imaging or laboratory studies. Unknown tetanus status will update tetanus and plan for laceration closure. Laceration closed with sutures without complication. Wound care discussed. Will defer antibiotic therapy at this time. Patient works with her primary care provider and will obtain prescription for antibiotic therapy if infection occurs. Advised suture removal in 5-7 days. Will discharge home in stable condition. Case discussed with Dr. Lechuga. Disposition Clinical Impression: Laceration Disposition: HOME SELF-CARE Condition: Stable Instructions (If sedation given, give patient instructions): Care For Your Stitches (ED), Laceration (ED) Additional Instructions: Please keep wound clean and dry. Monitor for signs and symptoms of infection and seek medical attention as appropriate if symptoms occur. Please follow-up with your primary care provider for suture removal in 5-7 days. Please return to the Emergency Department if symptoms worsen or any other concerns. Is patient prescribed a controlled substance at d/c from ED?: No Referrals: Myron Vazquez MD [Primary Care Provider] - 1-2 days Time of Disposition: 17:50
== END 2022-05-18 18:06 | disposition home or self-care (01) ==
LOC: EC 16:51
DX: S61.210A Laceration without foreign body of right index finger without damage to nail, initial encounter (principal); Z23 Encounter for immunization; J44.9 Chronic obstructive pulmonary disease, unspecified; E11.9 Type 2 diabetes mellitus without complications; K21.9 Gastro-esophageal reflux disease without esophagitis; F17.200 Nicotine dependence, unspecified, uncomplicated; Z88.1 Allergy status to other antibiotic agents; Z79.84 Long term (current) use of oral hypoglycemic drugs; Z79.899 Other long term (current) drug therapy; W26.8XXA Contact with other sharp object(s), not elsewhere classified, initial encounter
CPT/HCPCS: 90715; 99282; 90471; 12001; J2001

== ENCOUNTER → 2022-06-04 | Outpatient (CLI) | payer OTHER ==
--- NOTE | 2022-06-04 12:44 | MM ---
Reason for Exam: Screening (asymptomatic). Last mammogram was performed 2 year(s) and 1 month(s) ago. Patient History: Menarche at age 17. First Full-Term at age 29. Postmenopausal. Risk Values: Trina 5 year model risk: 1.2%. NCI Lifetime model risk: 8.3%. Prior Study Comparison: 08/14/2015 Bilateral Screening Mammogram, [facility]. 04/26/2020 Bilateral Screening Mammogram, [facility]. Tissue Density: The breast tissue is heterogeneously dense. This may lower the sensitivity of mammography. Findings: Analyzed By CAD. There is no suspicious group of microcalcifications or new suspicious mass in either breast. Overall Assessment: Benign, BI-RAD 2 Management: Screening Mammogram of both breasts in 1 year. A clinical breast exam by your physician is recommended on an annual basis and results should be correlated with mammographic findings. Electronically signed and approved by: Sid Eaton M.D. Radiologis
== END | disposition home or self-care (01) ==
LOC: RADMAMWWP 07:09
PROVIDERS: ATTEND Family Medicine
DX: Z12.31 Encounter for screening mammogram for malignant neoplasm of breast (principal); Z78.0 Asymptomatic menopausal state; Z87.891 Personal history of nicotine dependence
CPT/HCPCS: 77067

== ENCOUNTER → 2023-08-11 | Outpatient (CLI) | payer OTHER ==
--- NOTE | 2023-08-11 08:26 | CTL ---
EXAMINATION TYPE: CT Low Dose Lung DATE OF EXAM: 08/11/2023 8:15 AM CLINICAL INDICATION:Female, 57 years old with history of Z87.891 Personal hx of nicotine dependence; personal history of nicotine dependence , history of tobacco use. COMPARISON: None. TECHNIQUE: Multiple axial non-contrast scans were obtained from approximately the lung apices through the upper abdomen. Coronal and sagittal reformatted images were obtained. Low dose technique was uti lized. CT DLP: 97 mGycm, Automated exposure control for dose reduction was used. CT Contrast: Contrast used: None Oral contrast used: None FINDINGS: ======== Lack of intravenous contrast and low dose technique limits the evaluation of the vascular and soft ti ssue structures. LUNGS: No evidence of pulmonary fibrosis. No evidence of focal consolidation, pneumothorax or pleural effusion. Mild centrilobular emphysema changes are seen throughout the lungs. Nodules: RUL: None. RML: None. RLL: None. KARAN: None. LLL: None. AIRWAY: Patent and unremarkable. HEART: Size within normal limits. Mild coronary artery cusp patient's. MEDIASTINUM: No gross evidence of adenopathy. VASCULATURE: No aortic aneurysm. MUSCULOSKELETAL: No acute osseous abnormalities SOFT TISSUES/LYMPH NODES: Unremarkable. LOWER NECK: No significant findings. IMPRESSION: 1. No pulmonary nodules. 2. Mild emphysema. CT LUNG RAD AND CT CHEST RECOMMENDATION: Lung-Rad 1 Negative: Continue annual screening with LDCT in 12 months. S Modifier (other clinically significant findings): None Recommend smoking cessation (if current smoker), or continuation of smoking cessation (if prior smoke r). Annual screening for lung cancer with low-dose computed tomography is recommended in adults ages 55 to 77 years who have a 30 pack-year smoking history and currently smoke or have quit within the pa st 15 years. Screening should be discontinued once a person has not smoked for 15 years or develops a health problem that substantially limits life expectancy or the ability or willingness to have curat gurdeep lung surgery. Lung rads 2021 [email or web address]
--- NOTE | 2023-08-11 08:29 | CT ---
EXAMINATION TYPE: CT abdomen wo con CT DLP: 767 mGycm, Automated exposure control for dose reduction was used. DATE OF EXAM: 08/11/2023 8:15 AM COMPARISON: CT abdomen pelvis most recent from CLINICAL INDICATION:Female, 57 years old with history of N28.1 CYST OF KIDNEY, ACQUIRED; renal cyst TECHNIQUE: Axial CT abdomen wo con;Sagittal and coronal reformats were created on a separate worksta tion. Contrast used: mL of , (none if empty) Oral contrast used: without Oral Contrast (none if empty) FINDINGS: LIVER: Diffusely hypoattenuating parenchyma. GALLBLADDER AND BILE DUCTS: Unremarkable. PANCREAS: Unremarkable. SPLEEN: Unremarkable. ADRENAL GLANDS: Left adrenal lipid rich adenoma measuring 11 mm -16 Hounsfield units. No right adrena l nodules. KIDNEYS AND URETERS: No evidence of hydronephrosis or renal calculus. The ureters are unremarkable. STOMACH AND BOWEL: No evidence of bowel obstruction. The appendix is normal. PERITONEUM/RETROPERITONEUM: No evidence of pneumoperitoneum or free fluid. VASCULATURE: Mild atherosclerotic calcifications are present throughout the abdominal aorta and its b ranches. No evidence of aortic aneurysm. MUSCULOSKELETAL: No acute osseous abnormalities. Mild disc degeneration changes are present throughou t the thoracolumbar spine. LYMPH NODES: No gross evidence for lymphadenopathy. SOFT TISSUE/ABDOMINAL WALL: Small fat-containing umbilical hernia. IMPRESSION: 1. Limited noncontrast exam no evidence for renal cyst or mass. 2. Hepatic steatosis. 3. Left adrenal lipid rich adenoma.
== END | disposition home or self-care (01) ==
LOC: RADCTMAIN 07:43
PROVIDERS: ATTEND Family Medicine
DX: Z12.2 Encounter for screening for malignant neoplasm of respiratory organs (principal); D35.02 Benign neoplasm of left adrenal gland; K76.0 Fatty (change of) liver, not elsewhere classified; J43.2 Centrilobular emphysema; N28.1 Cyst of kidney, acquired; R91.8 Other nonspecific abnormal finding of lung field; F17.210 Nicotine dependence, cigarettes, uncomplicated
CPT/HCPCS: 71271; 74150